=== PATIENT | male | born 1970 | race Caucasian/White ===

== ENCOUNTER 2017-05-25 19:30 | Inpatient (IN) | payer BC ==
--- NOTE | 2017-05-25 21:15 | PDOC ---
History of Present Illness - General History Source: Patient Exam Limitations: No Limitations - History of Present Illness Initial Comments: 05/25/17 21:25 The patient is a 46 year old male with history of cigarette smoking, recent left wisdom tooth removal on 05/23/17, ?sleep apnea, who presents to the ED complaining of approximately 1 week of fever, Tmax 102, and sore throat. He states he was seen at Urgent Care approximately 6 days ago for his symptoms, where he had negative strep and mono tests. He returned to the Urgent Care 4 days ago for persistence of his symptoms and again had negative strep and mono tests. He saw his dentist 2 days ago who reportedly removed a left lower wisdom tooth and underlying cyst. He was prescribed 150 mg of Clindamycin TID and completed 2 days of a 7 day course. Yesterday, he was woken from sleep by difficulty breathing. He continues to have fever and sore throat. No chest pain or wheezing. He does report loose stools secondary to taking Clindamycin. No abdominal pain, nausea, vomiting. No hematuria or dysuria. Patient is allergic Penicillins, cephalexin monohydrate <Kendy Mccray - Last Filed: 05/25/17 23:52> <Ju Martínez - Last Filed: 05/26/17 05:53> - General Chief Complaint: Respiratory Stated Complaint: SORE THROAT Time Seen by Provider: 05/25/17 20:42 Past History <Kendy Mccray - Last Filed: 05/25/17 23:52> - Psycho/Social/Smoking Cessation Hx Suicidal Ideation: No Smoking History: Current every day smoker Have you smoked in the past 12 months: No Number of Cigarettes Smoked Daily: 10 Information on smoking cessation initiated: No Hx Alcohol Use: No Drug/Substance Use Hx: No <Ju Martínez - Last Filed: 05/26/17 05:53> - Past Medical History Allergies/Adverse Reactions: Allergies Allergy/AdvReac Type Severity Reaction Status Date / Time cephalexin monohydrate Allergy Verified 05/25/17 19:49 [From Keflex] Penicillins Allergy Verified 05/25/17 19:49 Home Medications: Ambulatory Orders Clindamycin [Cleocin -] 150 mg PO Q6H 05/25/17 Ibuprofen [Motrin -] 600 mg PO TID PRN 05/25/17 Naproxen [Naprosyn -] 500 mg PO BID PRN 05/25/17 Review of Systems - Review of Systems Able to Perform ROS?: Yes Comments:: 05/25/17 21:31 GENERAL/CONSTITUTIONAL: +Fever. No weakness. HEAD, EYES, EARS, NOSE AND THROAT: +Sore throat. +Left ear pain. No change in vision. No ear discharge. CARDIOVASCULAR: No chest pain or shortness of breath. RESPIRATORY: No cough, wheezing, or hemoptysis. GASTROINTESTINAL: +Loose stools, No nausea, vomiting, abdominal pain, or constipation. GENITOURINARY: No dysuria, frequency, or change in urination. MUSCULOSKELETAL: No joint or muscle swelling or pain. No neck or back pain. SKIN: No rash NEUROLOGIC: No headache, vertigo, loss of consciousness, or change in strength/ sensation. ENDOCRINE: No increased thirst. No abnormal weight change. HEMATOLOGIC/LYMPHATIC: No anemia, easy bleeding, or history of blood clots. ALLERGIC/IMMUNOLOGIC: No hives or skin allergy. <Kendy Mccray - Last Filed: 05/25/17 23:52> *Physical Exam - Vital Signs Last Vital Signs Temp Pulse Resp BP Pulse Ox 99.6 F 94 H 18 131/80 96 05/25/17 19:43 05/25/17 19:43 05/25/17 19:43 05/25/17 19:43 05/25/17 19:43 - Physical Exam Comments: 05/25/17 21:31 GENERAL: Awake, alert, and fully oriented, in no acute distress HEAD: No signs of trauma EYES: PERRLA, EOMI, sclera anicteric, conjunctiva clear ENT: Auricles normal inspection, hearing grossly normal, nares patent. +Left mandibular suture in place. +Left peritonsillar edema and "beefiness". Moist mucosa. TMs bilaterally with copious cerumen, no notable erythema. NECK: Normal ROM, supple, no lymphadenopathy, JVD, or masses LUNGS: Breath sounds equal, clear to auscultation bilaterally. No wheezes, and no crackles HEART: Regular rate and rhythm, normal S1 and S2, no murmurs, rubs or gallops ABDOMEN: Soft, nontender, normoactive bowel sounds. No guarding, no rebound. No masses EXTREMITIES: Normal range of motion, no edema. No clubbing or cyanosis. No cords, erythema, or tenderness NEUROLOGICAL: Cranial nerves II through XII grossly intact. Normal speech, normal gait SKIN: Warm, Dry, normal turgor, no rashes or lesions noted. <Kendy Mccray - Last Filed: 05/25/17 23:52> - Vital Signs Last Vital Signs Temp Pulse Resp BP Pulse Ox 99.6 F 94 H 18 131/80 96 05/25/17 19:43 05/25/17 19:43 05/25/17 19:43 05/25/17 19:43 05/25/17 19:43 <Ju Martínez - Last Filed: 05/26/17 05:53> Heart Score/ECG Review #1 05/25/17 23:52 EKG obtained 23:40. Poor data quality NSR 72 bpm. Normal EKG <Kendy Mccray - Last Filed: 05/25/17 23:52> ED Treatment Course - LABORATORY CBC & Chemistry Diagram: 05/25/17 21:40 05/25/17 21:40 - Additional Consults Time Called: 23:40 Consult/PCP: Placed call to Dr. Go of ENT at [phone] Reason/Comments: Case discussed with covering surgeon Dr. Rosenberg at 23:49 <Kendy Mccray - Last Filed: 05/25/17 23:52> - LABORATORY CBC & Chemistry Diagram: 05/25/17 21:40 05/25/17 21:40 <Ju Martínez - Last Filed: 05/26/17 05:53> Medical Decision Making - Medical Decision Making 05/26/17 00:39 Patient Name: Jose Adams This is a preliminary report by imaging continuous miner operator helper Exam : CT soft tissues of the neck without contrast Images: 347 Clinical indication : Rule out left tonsillar abscess. Findings: The lingual tonsils are enlarged. A rounded area of hypovascularity in the left tonsil measures up to 16 mm in diameter consistent with phlegmon. This process demonstrates central soft tissue attenuation and is unlikely to represent a drainable abscess. Peripheral hypervascularity is noted. The epiglottis and aryepiglottic folds are unremarkable. The larynx is unremarkable. The visualized cerebral and cerebellar parenchyma is unremarkable. Limited evaluation of the orbits and globes unremarkable. The coastal thickening and debris is noted in the left sphenoid sinus. The paranasal sinuses middle ear cavities and mastoids are otherwise aerated and clear. The nasal cavity and oral cavity are unremarkable. The parotid and submandibular glands are unremarkable. No adenopathy noted. Impression: Enlarged lingual tonsils. A hypovascular soft tissue attenuation process seen on the left demonstrates peripheral increased vascularity and is consistent with a phlegmon/forming abscess. This is unlikely to represent a drainable collection. THIS DOCUMENT HAS BEEN ELECTRONICALLY SIGNED 05/26/17 00:55 Pt was given 150mg clinda TID by his dentist as prophylaxis for his removed tooth. This is not strong enough for his throat/mouth infection. I gave him a large dose of 900mg clindamycin, considering the extent of his infection and his weight of 142kg. Pt will be admitted to the hospitalist, as he is unable to breathe when he sleeps, secondary to the swelling in his throat. ENT recommended dexamethasone. She came to see the patient, but she could not remove pus from the throat. perhaps, the abscess pocket is early and not filled with pus. 05/26/17 05:49 Pt admitted to the floor. He will be upgraded to ICU, as per ENT. <Ju Martínez - Last Filed: 05/26/17 05:53> *DC/Admit/Observation/Transfer - Attestations Scribe Attestion: 05/25/17 21:33 Documentation prepared by Kendy Mccray, acting as outside medical sales representative for Ju Martínez MD. <Kendy Mccray - Last Filed: 05/25/17 23:52> - Discharge Dispostion Admit: Yes <Ju Martínez - Last Filed: 05/26/17 05:53> Diagnosis at time of Disposition: Peritonsillar abscess, Difficulty breathing, Throat infection - Discharge Dispostion Condition at time of disposition: Guarded
[2017-05-25] MEDS ORDERED: CLINDAMYCIN 900 MG PREMIX IVPB 50 ML IVPB ONE ×2 (21:25→21:53)
[2017-05-25] MEDS ORDERED: SODIUM CHLORIDE 0.9% 500 ML INFUS.BAG IV ONE (21:26)
[2017-05-25] MEDS ORDERED: ACETAMINOPHEN 1000 MG/100 ML VIAL (NON FORMULARY) IVPB ONE (21:26)
[2017-05-25 21:53] LABS: MCH 30.1 pg (25.7-33.7); MEAN CELL VOLUME 88.5 fl (80-96); MEAN PLT VOLUME 8.1 fl (7.5-11.1); PLATELET COUNT 265 K/MM3 (134-434); RDW 12.8 % (11.9-15.9); WHITE BLOOD COUNT 20.3 K/mm3 (4.0-10.0)
[2017-05-25 22:24] LABS: ALBUMIN 4.1 g/dl (3.4-5.0); ANION GAP 10 (8-16); BILIRUBIN,TOTAL 0.4 mg/dL (0.2-1.0); CALCIUM 8.7 mg/dL (8.5-10.1); CO2 26 mmol/L (21-32); CREATININE 1.1 mg/dL (0.7-1.3); GLUCOSE,RANDOM 96 mg/dL (74-106); SGOT/AST 14 U/L (15-37); SGPT/ALT 39 U/L (12-78); TOT PROT 7.6 g/dl (6.4-8.2)
[2017-05-25 22:32] LABS: ALK PHOS 96 U/L (45-117); THYROID STIMULATING HORMONE 1.64 uIU/ml (0.358-3.74)
[2017-05-25] MEDS ORDERED: DEXAMETHASONE SOD PHOSPHATE 10 MG/1 ML VIAL IVPB ONE (23:51)
[2017-05-25] MEDS ORDERED: DEXAMETHASONE SOD PHOSPHATE 10 MG/1 ML VIAL ONE (23:57)
--- NOTE | 2017-05-26 00:50 | PN ---
Teaching Attending Note Name of Resident: Farzaneh Serrano ATTENDING PHYSICIAN STATEMENT I saw and evaluated the patient. I reviewed the resident's note and discussed the case with the resident. I agree with the resident's findings and plan as documented. SUBJECTIVE: 46 M with pmhx of smoking, with left wisdom tooth removal done on 05/23 and placed on Clindamycin 150, sleep apnea, who presents to the ED with sore throat and fever. OBJECTIVE: Physcal: VS: Vital Signs Period Temp Pulse Resp BP Sys/Martin Pulse Ox Last 24 Hr 99.6 F 94 18 131/80 96 GEN: Able to speak full sentences HEENT: NCAT, PERRL, Left tonsillar edema CARD: RRR S1, S2 RESP: CTAB ABD: BS X4, NTD to palpation EXT: - C/C/E CBCD WBC 20.3 K/mm3 (4.0-10.0) H 05/25/17 21:40 RBC 4.82 M/mm3 (4.00-5.60) 05/25/17 21:40 Hgb 14.5 GM/dL (11.7-16.9) 05/25/17 21:40 Hct 42.7 % (35.4-49) 05/25/17 21:40 MCV 88.5 fl (80-96) 05/25/17 21:40 MCHC 34.0 g/dl (32.0-35.9) 05/25/17 21:40 RDW 12.8 % (11.9-15.9) 05/25/17 21:40 Plt Count 265 K/MM3 (134-434) 05/25/17 21:40 MPV 8.1 fl (7.5-11.1) 05/25/17 21:40 CMP Sodium 140 mmol/L (136-145) 05/25/17 21:40 Potassium 4.2 mmol/L (3.5-5.1) 05/25/17 21:40 Chloride 104 mmol/L (98-107) 05/25/17 21:40 Carbon Dioxide 26 mmol/L (21-32) 05/25/17 21:40 Anion Gap 10 (8-16) 05/25/17 21:40 BUN 15 mg/dL (7-18) 05/25/17 21:40 Creatinine 1.1 mg/dL (0.7-1.3) 05/25/17 21:40 Creat Clearance w eGFR > 60 (>60) 05/25/17 21:40 Random Glucose 96 mg/dL (74-106) 05/25/17 21:40 Calcium 8.7 mg/dL (8.5-10.1) 05/25/17 21:40 Total Bilirubin 0.4 mg/dL (0.2-1.0) 05/25/17 21:40 AST 14 U/L (15-37) L 05/25/17 21:40 ALT 39 U/L (12-78) 05/25/17 21:40 Alkaline Phosphatase 96 U/L (45-117) 05/25/17 21:40 Total Protein 7.6 g/dl (6.4-8.2) 05/25/17 21:40 Albumin 4.1 g/dl (3.4-5.0) 05/25/17 21:40 CT Soft Tissue Neck: Enlarged Lingual tonsils, hypovascular soft tissue attenuation with increased vascularity c/w Phlegmon/forming abscess, unlikley to present drainable collection. ASSESSMENT AND PLAN: 46 M with pmhx of smoking presents with sore throat and fever found to be septic secondary to margot-tonsillar abscess 1.) Sepsis - Secondary to Margot-Tonsilar abscess - [place] Cx - LA, and repeat - Clindamycin 600 q 8 - S/P Dexamethasone 10 IV, then 8 q 8 - ENT on consult - IVF - ID consult if no improvement 2.) Smoking - Advise Cessation 3.) Dvt Ppx - Low Risk- Ambulate Rest as per resident note CC Time: 40 minutes, accepted to ICU by compliance mgr
[2017-05-26] MEDS ORDERED: LIDOCAINE 1%/EPI 1:100000 (50 ML MULTI DOSE VIAL) ONE (01:12)
--- NOTE | 2017-05-26 01:24 | HP ---
CHIEF COMPLAINT: Difficulty breathing and unable to swallow PCP: Not on staff HISTORY OF PRESENT ILLNESS: Patient is a46 year old male with a PMHx of recent left wisdom tooth removal () who presented to the ED complaining of fevers, sore throat, difficulty breathing and swallowing. Patient states going to urgent care last week for these symptoms with results showing negative strep and mono. Patient then had a his wisdom tooth and underlying curst removed two days ago and was given Clindamycin 150mg PO TID, which he completed two days of. Patient then suddenly work up from his sleep today with difficulty breathing and drooling. Patient otherwise denies nausea, vomiting, abdominal pain, chest pain, palpitations, dysuria, hematuria, headaches, dizziness, Vital Signs - 24 hr 05/25/17 05/26/17 19:43 03:03 Temperature 99.6 F 98.2 F Pulse Rate 94 H Pulse Rate [ 85 Right Apical] Respiratory 18 19 Rate Blood Pressure 131/80 Blood Pressure 116/84 [Left Arm] O2 Sat by Pulse 96 98 Oximetry (%) PHYSICAL EXAMINATION GENERAL: Awake, alert, and fully oriented. Able to speak in full sentences without difficulty or drooling with muffled voice EYES: Sclera anicteric, conjunctiva clear. EARS, NOSE, THROAT: Moist mucous membranes. Induration, edema, and hypertrophy of left tonsil. Midline uvula NECK: Normal range of motion, supple without lymphadenopathy, JVD, or masses. LUNGS: Breath sounds equal, clear to auscultation bilaterally. No wheezes, and no crackles. No accessory muscle use. HEART: Regular rate and rhythm, normal S1 and S2 without murmur, rub or gallop. ABDOMEN: Soft, nontender, not distended, normoactive bowel sounds, no guarding, no rebound, no masses. LOWER EXTREMITIES: No peripheral edema. NEUROLOGICAL: Normal speech, No facial droop IMAGES: Soft Tissue CT of the neck (05/25/17): The lingual tonsils are enlarged. A rounded area of hypovascularity in the left tonsil measures up to 16 mm in diameter consistent with phlegmon. This process demonstrates central soft tissue attenuation and is unlikely to represent a drainable abscess. Peripheral hypervascularity is noted. The epiglottis and aryepiglottic folds are unremarkable. The larynx is unremarkable. The visualized cerebral and cerebellar parenchyma is unremarkable. Limited evaluation of the orbits and globes unremarkable. The coastal thickening and debris is noted in the left sphenoid sinus. The paranasal sinuses middle ear cavities and mastoids are otherwise aerated and clear. The nasal cavity and oral cavity are unremarkable. The parotid and submandibular glands are unremarkable. No adenopathy noted. Impression: Enlarged lingual tonsils. A hypovascular soft tissue attenuation process seen on the left demonstrates peripheral increased vascularity and is consistent with a phlegmon/forming abscess. This is unlikely to represent a drainable collection. ASSESSMENT/PLAN: Patient is a 46 year old male with a PMHx of Nicotine dependence who presented for difficulty breathing and swallowing that started last week and progressively worsened in the last two days. Patient was found to have peritonsillar abscess and admitted for further monitoring and management. Sepsis Secondary to Peritonsillar Abscess -CT revealed phlegmon/forming abscess -Initially presented with Tachycardia and Leukocytosis -Lactic Acid pending -Clindamycin 900mg IV given in ED. Will continue with CLindamycin 600mg IV Q8H as patient is allergic to penicillins -Decadron 10mg IV given in ED. Will give 8mg Q8H IV -Morphine 1mg Q4H PRN for pain control -Blood cultures sent -Rapid stress ordered -ENT Consult placed -IV NS @125mls/hr -NPO -Dysphagia Precaution -ICU monitoring Nicotine Dependence -Nicotine Patch 14mg TD daily F/E/N -IV NS @125mls/hr -Electrolytes wnl -NPO Prophylaxis -Low Risk. EAM. SCD's for DVT -No GI prophylaxis indicated Disposition -Full code -Will admit to ICU for monitoring Visit type - Emergency Visit Emergency Visit: Yes ED Registration Date: 05/26/17 Care time: The patient presented to the Emergency Department on the above date and was hospitalized for further evaluation of their emergent condition. - New Patient This patient is new to me today: Yes Date on this admission: 05/26/17 - Critical Care Critical Care patient: Yes Total Critical Care Time (in minutes): 45 Critical Care Statement: The care of this patient involved high complexity decision making to prevent further life threatening deterioration of the patient 's condition and/or to evalute & treat vital organ system(s) failure or risk of failure.
--- NOTE | 2017-05-26 02:13 | CONSULT ---
Consult - text type - Consultation Consultation Note: CC: sore throat x 7 days HPI: 46 year old male with history of cigarette smoking, recent left wisdom tooth removal on 05/23/17, possible sleep apnea, who presents to the ED complaining of approximately 1 week of fever and sore throat. He states he was seen at Urgent Care approximately 6 days ago for his symptoms, where he had negative strep and mono tests. He returned to the Urgent Care 4 days ago for persistence of his symptoms and again had negative strep and mono tests. He saw his dentist 2 days ago who reportedly removed a left lower wisdom tooth and underlying cyst. He was prescribed 150 mg of Clindamycin TID and completed 2 days of a 7 day course. He reports that yesterday, he was woken from sleep by difficulty breathing. He continues to have fever and sore throat. No chest pain or wheezing. He does report loose stools which he attributes to taking Clindamycin. No abdominal pain, nausea, vomiting. No hematuria or dysuria. Patient is allergic Penicillins, cephalexin monohydrate Smoking History: Current every day smoker Have you smoked in the past 12 months: No Number of Cigarettes Smoked Daily: 10 Information on smoking cessation initiated: No Hx Alcohol Use: No - Past Medical History Allergies/Adverse Reactions: Allergies Allergy/AdvReac Type Severity Reaction Status Date / Time cephalexin monohydrate Allergy Verified 05/25/17 19:49 [From Keflex] Penicillins Allergy Verified 05/25/17 19:49 Home Medications: Ambulatory Orders Clindamycin [Cleocin -] 150 mg PO Q8H? 05/25/17 Ibuprofen [Motrin -] 600 mg PO TID PRN 05/25/17 Naproxen [Naprosyn -] 500 mg PO BID PRN 05/25/17 Review of Systems - Review of Systems Able to Perform ROS?: Yes Comments:: 05/25/17 21:31 GENERAL/CONSTITUTIONAL: +Fever. No weakness. HEAD, EYES, EARS, NOSE AND THROAT: +Sore throat. +Left ear pain. No change in vision. No ear discharge. CARDIOVASCULAR: No chest pain or shortness of breath. RESPIRATORY: No cough, wheezing, or hemoptysis. GASTROINTESTINAL: +Loose stools, No nausea, vomiting, abdominal pain, or constipation. GENITOURINARY: No dysuria, frequency, or change in urination. MUSCULOSKELETAL: No joint or muscle swelling or pain. No neck or back pain. SKIN: No rash NEUROLOGIC: No headache, vertigo, loss of consciousness, or change in strength/ sensation. ENDOCRINE: No increased thirst. No abnormal weight change. HEMATOLOGIC/LYMPHATIC: No anemia, easy bleeding, or history of blood clots. ALLERGIC/IMMUNOLOGIC: No hives or skin allergy. *Physical Exam - Vital Signs Last Vital Signs Temp Pulse Resp BP Pulse Ox 99.6 F 94 H 18 131/80 96 05/25/17 19:43 05/25/17 19:43 05/25/17 19:43 05/25/17 19:43 05/25/17 19:43 - Physical Exam Comments: 05/25/17 21:31 GENERAL: Awake, alert, and fully oriented, in no acute distress, No drooling. voice- very slight hot potato voice HEAD: No signs of trauma EYES: PERRLA, EOMI, sclera anicteric, conjunctiva clear EARS: Auricles normal inspection, hearing grossly normal, NC: DNS NML mucosa OC/OP Left gingiva- sutures from extraction of left molar in place, no erythema or induration. Left teft soft palate inuration and left tonsillar hypertrophy with medialized tonsil but uvula is basically midline. NECK: Normal ROM, supple, no lymphadenopathy, JVD, or masses LUNGS:normal effort EXTREMITIES: Normal range of motion, no edema. NEUROLOGICAL: Cranial nerves II through XII grossly intact. SKIN: Warm, Dry, normal turgor, no rashes or lesions noted. DFL NC: DNS , nml mucosa + polyps in left NC. no mucopus in OMC or ser . NPx wnl. OPX: tonsillar hypertrophy and soft palate induration. Hypophaynx and larynx very slight left lateral hypophayngeal wall bulge superiorly. epiglottis wnl, arytneoids wnl.piriforma sinuses wnl. post cricoid wnl. VFs mobile bilaterally. no pooling of secretions. <Kendy Mccray - Last Filed: 05/25/17 23:52> - Vital Signs Last Vital Signs Temp Pulse Resp BP Pulse Ox 99.6 F 94 H 18 131/80 96 05/25/17 19:43 05/25/17 19:43 05/25/17 19:43 05/25/17 19:43 05/25/17 19:43 -05/25/17 21:40 05/25/17 21:40 This is a preliminary report by imaging complaint evaluation officer Exam: CT soft tissues of the neck without contrast Images: 347 Clinical indication: Rule out left tonsillar abscess. Findings: The lingual tonsils are enlarged. A rounded area of hypovascularity in the left tonsil measures up to 16 mm in diameter consistent with phlegmon. This process demonstrates central soft tissue attenuation and is unlikely to represent a drainable abscess. Peripheral hypervascularity is noted. The epiglottis and aryepiglottic folds are unremarkable. The larynx is unremarkable. The visualized cerebral and cerebellar parenchyma is unremarkable. Limited evaluation of the orbits and globes unremarkable. The coastal thickening and debris is noted in the left sphenoid sinus. The paranasal sinuses middle ear cavities and mastoids are otherwise aerated and clear. The nasal cavity and oral cavity are unremarkable. The parotid and submandibular glands are unremarkable. No adenopathy noted. Impression: Enlarged lingual tonsils. A hypovascular soft tissue attenuation process seen on the left demonstrates peripheral increased vascularity and is consistent with a phlegmon/forming abscess. This is unlikely to represent a drainable collection. THIS DOCUMENT HAS BEEN ELECTRONICALLY SIGNED informed consent for I and D of possible left DEAF INTERPRETER obtained after r,b,a discussed and questions answered . Left soft palate injected with lidocaine with epi 1:100,000 (approx 0.5 cc) after POP sprayed with hurriciane spray. # passes of needle (20 guage) aspirations were done. no pus obtained. A/P: tonsillitis, left peritonsillar/ paraphayngeal phlegmon orophayrngeal airway with patent but narrowed. Hypophayngela and laryngeal airway widely patent. Admit to ICU/monitored setting. Cont IV clinda and decadron. Discussed with ER and medical Staff. Consider ID consult as patient is PCN allergic and has been on clinda albeit likely sub-therapeutic dose. .
[2017-05-26] MEDS ORDERED: morphine CARPU-JECT 2 MG/1 ML DISP.SYRIN IVPUSH PRN ×3 (02:22→11:58)
[2017-05-26] MEDS ORDERED: SODIUM CHLORIDE 1,000 ML IV SCH ×3 (02:30→11:58)
--- NOTE | 2017-05-26 02:41 | HP ---
CHIEF COMPLAINT: Difficulty breathing and difficulty swallowing. PCP:No PCP HISTORY OF PRESENT ILLNESS:05/25/17 21:25 A 46 year old white male with history of cigarette smoking, recent left wisdom tooth removal on 05/23/17, who presents to the ED complaining of approximately 1 week of fever, Tmax 102, and sore throat. He states he was seen at Urgent Care approximately 6 days ago for his symptoms, where he had negative strep and negative mono tests. He returned to the Urgent Care 4 days ago for persistence of his symptoms and again had negative strep and mono tests. He saw his dentist 2 days ago who reportedly removed a left lower wisdom tooth and underlying cyst. He was prescribed 150 mg of Clindamycin TID and completed 2 days of a 7 day course. Yesterday, he was woken from sleep by difficulty breathing and gasping for air. He continues to have fever and sore throat and difficulty swallowing. No chest pain or wheezing. He does report soft loose stools secondary to taking Clindamycin. No abdominal pain, nausea, vomiting. No hematuria or dysuria. He reports a left air pain that relieved with tooth extraction. He denies any headache, blurry vision, facial pain.no history of sick contact, recent cold or recent travel. Patient is allergic Penicillins, cephalexin monohydrate ER course was notable for: (1)Ct scan was ordered which revealed Impression: Enlarged lingual tonsils. A hypovascular soft tissue attenuation process seen on the left demonstrates peripheral increased vascularity and is consistent with a phlegmon/forming abscess. (2) ENT Dr Coy was consulted, she tried to drain the abscess with no success. (3) Clindamycine 900 IV Recent Travel:NO PAST MEDICAL HISTORY:Unremarkable PAST SURGICAL HISTORY: Laser eye lasik surgery 10 years ago. Social History: Smokin/2 pack/day for the last 20 years. Alcohol:Socially Drugs: No Family History:unremarkable. Allergies cephalexin monohydrate [From [facility]] Allergy (Verified 05/25/17 19:49) Penicillins Allergy (Verified 05/25/17 19:49) HOME MEDICATIONS: Home Medications Medication Instructions Recorded Clindamycin [Cleocin -] 150 mg PO Q6H 05/25/17 Ibuprofen [Motrin -] 600 mg PO TID PRN 05/25/17 Naproxen [Naprosyn -] 500 mg PO BID PRN 05/25/17 REVIEW OF SYSTEMS CONSTITUTIONAL: fever but ,no diaphoresis,no generalized weakness, malaise, loss of appetite, weight change HEENT: He Denies rhinorrhea, nasal congestion, +throat pain,+ throat swelling, + difficulty swallowing, no mouth swelling, +ear pain, No eye pain, No visual changes CARDIOVASCULAR: He denies any chest pain, syncope, palpitations, irregular heart rate, lightheadedness or peripheral edema RESPIRATORY: Absent: denies cough, +shortness of breath,No dyspnea with exertion, No orthopnea, wheezing, stridor, hemoptysis GASTROINTESTINAL: Absent:No abdominal pain, abdominal distension, nausea, vomiting, diarrhea, constipation, melena, hematochezia GENITOURINARY: Absent:No dysuria, frequency, urgency, hesitancy, hematuria, flank pain, or genital pain MUSCULOSKELETAL: Absent: no myalgia, arthralgia, joint swelling, back pain, neck pain SKIN: Absent: No rash, itching, pallor HEMATOLOGIC/IMMUNOLOGIC: Absent: denies easy bleeding, easy bruising,+ submandibular lymphadenopathy,no recent infections ENDOCRINE: Absent: denies any weight changes, heat intolerance, cold intolerance NEUROLOGIC: Absent:denies headache, focal weakness or paresthesias, dizziness, unsteady gait, seizure, mental status changes, bladder or bowel incontinence PSYCHIATRIC: Absent: No anxiety, depression, suicidal or homicidal ideation, hallucinations. Vital Signs - 24 hr 05/25/17 19:43 Temperature 99.6 F Pulse Rate 94 H Respiratory 18 Rate Blood Pressure 131/80 O2 Sat by Pulse 96 Oximetry (%) PHYSICAL EXAMINATION GENERAL: Awake, alert, and fully oriented, in no acute distress. HEAD: Normal with no signs of trauma.peritonsillar enlargement with difficulty swallowing. EYES: Pupils equal, round and reactive to light, extraocular movements intact, sclera anicteric, conjunctiva clear. No lid lag. EARS, NOSE, THROAT: Ears normal, nares patent, oropharynx erythema with tonsils enlargement. Moist mucous membranes. NECK: Normal range of motion, supple with submandibular lymphadenopathy, No JVD ,+ peritonsillar abscess. LUNGS: Breath sounds equal, clear to auscultation bilaterally. No wheezes, and no crackles. No accessory muscle use. HEART: Regular rate and rhythm, normal S1 and S2 without murmur, rub or gallop. ABDOMEN: Soft, nontender, not distended, normoactive bowel sounds, no guarding, no rebound, no masses. No hepatomegaly or splenomegaly. MUSCULOSKELETAL: Normal range of motion at all joints. No bony deformities or tenderness. No CVA tenderness. UPPER EXTREMITIES: 2+ pulses, warm, well-perfused. No cyanosis. No clubbing. No peripheral edema. LOWER EXTREMITIES: 2+ pulses, warm, well-perfused. No calf tenderness. No peripheral edema. NEUROLOGICAL: Cranial nerves II-XII intact. Normal speech. Normal gait. PSYCHIATRIC: Cooperative. Good eye contact. Appropriate mood and affect. SKIN: Warm, dry, normal turgor, no rashes or lesions noted, normal capillary refill. Laboratory Results - last 24 hr 05/25/17 05/25/17 21:40 21:40 WBC 20.3 H RBC 4.82 Hgb 14.5 Hct 42.7 MCV 88.5 MCHC 34.0 RDW 12.8 Plt Count 265 MPV 8.1 Neutrophils % 75.0 Lymphocytes % 17.0 Monocytes % 6.0 Eosinophils % 1.0 Band Neutrophils 1.0 Sodium 140 Potassium 4.2 Chloride 104 Carbon Dioxide 26 Anion Gap 10 BUN 15 Creatinine 1.1 Creat Clearance w eGFR > 60 Random Glucose 96 Calcium 8.7 Total Bilirubin 0.4 AST 14 L ALT 39 Alkaline Phosphatase 96 Total Protein 7.6 Albumin 4[address] Soft tissue of the neck without contrast revealed Enlarged lingual tonsils. A hypovascular soft tissue attenuation process seen on the left demonstrates peripheral increased vascularity and is consistent with a phlegmon/forming abscess. This is unlikely to represent a drainable collection. ASSESSMENT/PLAN: a 46 year old white male with history of cigarette smoking, recent left wisdom tooth removal on 05/23/17, and sleep apnea, who presents to the ED complaining of approximately 1 week of fever, Tmax 102, and sore throat. 1- Sepsis 2/2 peritonsillar abscess: * CT scan for the neck w/O contrast revealed Enlarged lingual tonsils. A hypovascular soft tissue attenuation process seen on the left demonstrates peripheral increased vascularity and is consistent with a phlegmon/forming abscess. This is unlikely to represent a drainable collection. * CBC and BMP were ordered which showed WBC 20.3, H/H 14.5/42.7, Plt 265. Na 140, K 4.2, Cl 104, Bec 26, BUN 15/ Cr 1.1, Glu 96. * Antibiotics: Clindamycin 900 mg IV was given in the ER. * Will continue Clindamycin 600 mg IV Q8H * Steroids: Decadrone 10 mg was given in the ED and will continue tapering with 8 mg Q8H. * Lactic acid was ordered will follow up the result. * IV NS 125 mm/hour * will admit the patient in the ICU for monitoring. * NPO due to sore throat and dysphasia. * Pain control: Morphine 1 mg Q 4 h PRN. * rapid strep test and culture. * Dysphasia aspiration precautions. * F/U blood culture 2- Possible sleep apnea(undiagnosed): continue monitoring O2 sat and will admit to the ICU for monitoring.Pt was supposed to do the sleep study. 3- Prophylaxis: * SCD's for for DVT prophylaxis. * disposition:Full code - Will admit to ICU for monitoring daily activity as tolerated. * Fluids: NS 125 m/H * Electrolytes WNL * Nutrition : NPO * Dysphasia precautions 4- Nicotine addicted: * Nicotine Patch 14 daily was ordered. * smoking cessation consult and education. Visit type - Emergency Visit Emergency Visit: Yes ED Registration Date: 05/26/17 Care time: The patient presented to the Emergency Department on the above date and was hospitalized for further evaluation of their emergent condition. - New Patient This patient is new to me today: Yes Date on this admission: 05/26/17 - Critical Care Critical Care patient: Yes Total Critical Care Time (in minutes): 35 Critical Care Statement: The care of this patient involved high complexity decision making to prevent further life threatening deterioration of the patient 's condition and/or to evalute & treat vital organ system(s) failure or risk of failure.
[2017-05-26] MEDS ORDERED: CLINDAMYCIN 600MG PREMIX IVPB 50 ML IVPB SCH ×2 (03:00→09:00)
--- NOTE | 2017-05-26 04:43 | CONSULT ---
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 He states he was seen at Urgent Care on friday ~6d ago. Strep and mono tests were negative. He returned to the Urgent Care 4 days ago for persistence of his symptoms and again had negative strep and mono tests. He also visited an ENT doctor and was told to see his dentist where he had an extraction of infected left molar with cyst drainage. He was prescribed 150 mg of Clindamycin TID. He developed SOB and difficulty breathing and presented to ED. In ED HD stable. He reported sore throat and difficulty swallowing and soft loose stools secondary to taking Clindamycin. He denied chest pain; abdominal pain, n/v, headache, blurry vision, facial pain. Labs notable for WBC 20. He was started on Clindamycin 900mg TID. He was seen by ENT who had unsuccessful attempts at draining pocket. He was transferred to ICU for airway monitoring. In ICU rec'd afebrile on room air O2 sat 99%,HR 98, BP 122/80. Has obvious sleep apnea with HR down to 51 and O2 sat low 80's with snoring. Placed on NC O2. Antibiotics continued - History Source History Provided By: Patient, Medical Record Limitations to Obtaining History: No Limitations - Past Medical History Pulmonary: Yes: Sleep Apnea - Alcohol/Substance Use Hx Alcohol Use: No - Smoking History Smoking history: Current every day smoker Have you smoked in the past 12 months: No Aproximately how many cigarettes per day: 10 Home Medications - Allergies Allergies/Adverse Reactions: Allergies Allergy/AdvReac Type Severity Reaction Status Date / Time cephalexin monohydrate Allergy Verified 05/25/17 19:49 [From Keflex] Penicillins Allergy Verified 05/25/17 19:49 - Home Medications Home Medications: Ambulatory Orders Clindamycin [Cleocin -] 150 mg PO Q6H 05/25/17 Ibuprofen [Motrin -] 600 mg PO TID PRN 05/25/17 Naproxen [Naprosyn -] 500 mg PO BID PRN 05/25/17 Family Disease History - Family Disease History Family History: Unremarkable Review of Systems - Review of Systems Constitutional: reports: Chills, Fever, Loss of Appetite Eyes: reports: No Symptoms HENT: reports: Difficult Swallowing, Other (throat swelling) Neck: reports: Tenderness Cardiovascular: reports: No Symptoms Respiratory: reports: SOB Gastrointestinal: reports: Diarrhea Genitourinary: reports: No Symptoms Endocrine: reports: No Symptoms Hematology/Lymphatic: reports: No Symptoms Psychiatric: reports: No Symptoms Physical Exam Vital Signs: Vital Signs Temperature 98.5 F 05/26/17 03:48 Pulse Rate 72 05/26/17 03:48 Respiratory Rate 18 05/26/17 03:48 Blood Pressure 121/72 05/26/17 03:48 O2 Sat by Pulse Oximetry (%) 98 05/26/17 03:03 Constitutional: Yes: Obese Eyes: Yes: WNL, Conjunctiva Clear HENT: Yes: Nasal Congestion, Other (dysphagia, no drool) Neck: Yes: Trachea Midline, Lymphadenopathy, Tenderness (Lt Submandibular swelling), Other Cardiovascular: Yes: Bradycardia Respiratory: Yes: CTA Bilaterally, On Nasal O2, Other (nasal congestion) Gastrointestinal: Yes: Normal Bowel Sounds, Soft, Abdomen, Obese Extremities: Yes: WNL Edema: No Peripheral Pulses WNL: Yes Integumentary: Yes: WNL Neurological: Yes: WNL ...Motor Strength: WNL Psychiatric: Yes: Alert, Oriented Labs: CBC,CMP WBC 20.3 K/mm3 (4.0-10.0) H 05/25/17 21:40 RBC 4.82 M/mm3 (4.00-5.60) 05/25/17 21:40 Hgb 14.5 GM/dL (11.7-16.9) 05/25/17 21:40 Hct 42.7 % (35.4-49) 05/25/17 21:40 MCV 88.5 fl (80-96) 05/25/17 21:40 MCHC 34.0 g/dl (32.0-35.9) 05/25/17 21:40 RDW 12.8 % (11.9-15.9) 05/25/17 21:40 Plt Count 265 K/MM3 (134-434) 05/25/17 21:40 MPV 8.1 fl (7.5-11.1) 05/25/17 21:40 Neutrophils % 75.0 % (42.8-82.8) 05/25/17 21:40 Lymphocytes % 17.0 % (8-40) 05/25/17 21:40 Monocytes % 6.0 % (3.8-10.2) 05/25/17 21:40 Eosinophils % 1.0 % (0-4.5) 05/25/17 21:40 Band Neutrophils 1.0 % (0-10) 05/25/17 21:40 Sodium 140 mmol/L (136-145) 05/25/17 21:40 Potassium 4.2 mmol/L (3.5-5.1) 05/25/17 21:40 Chloride 104 mmol/L (98-107) 05/25/17 21:40 Carbon Dioxide 26 mmol/L (21-32) 05/25/17 21:40 Anion Gap 10 (8-16) 05/25/17 21:40 BUN 15 mg/dL (7-18) 05/25/17 21:40 Creatinine 1.1 mg/dL (0.7-1.3) 05/25/17 21:40 Creat Clearance w eGFR > 60 (>60) 05/25/17 21:40 Random Glucose 96 mg/dL (74-106) 05/25/17 21:40 Lactic Acid 0.9 mmol/L (0.4-2.0) 05/26/17 03:35 Calcium 8.7 mg/dL (8.5-10.1) 05/25/17 21:40 Total Bilirubin 0.4 mg/dL (0.2-1.0) 05/25/17 21:40 AST 14 U/L (15-37) L 05/25/17 21:40 ALT 39 U/L (12-78) 05/25/17 21:40 Alkaline Phosphatase 96 U/L (45-117) 05/25/17 21:40 Total Protein 7.6 g/dl (6.4-8.2) 05/25/17 21:40 Albumin 4.1 g/dl (3.4-5.0) 05/25/17 21:40 TSH 1.64 uIU/ml (0.358-3.74) 05/25/17 21:40 Imaging - Results Chest X-ray: Report Reviewed (Clear in all moreno) Cat Scan: Report Reviewed (CT of soft tissues of neck-Enlarged lingual tonsils; 16mm hypovascular area in Lt tonsil consistent with phlegmon/forming abscess, unlikely to represent a drainable collection thickening and debri in lt phenoid sinus.) Problem List - Problems (1) Difficulty breathing Code(s): R06.89 - OTHER ABNORMALITIES OF BREATHING (2) Peritonsillar abscess Code(s): J36 - PERITONSILLAR ABSCESS (3) Throat infection Code(s): J02.9 - ACUTE PHARYNGITIS, UNSPECIFIED Assessment/Plan 46yom smoker who presents to the ED complaining of approximately 1 week of fever , Tmax 102, and sore throat. Is s/p left molar extraction and is found to have enlarged lingual tonsils and a Lt neck plegmon/forming abscess. Transferred to ICU for airway management. Plan: Pulmonary-SOB, risk for airway obstruction; Sleep apnea -ENT following -Continue antibiotics and decadron -NC O2 support for o2 sat>90% -cont oral rinses -Outpatient sleep apne workup
[2017-05-26 05:48] VITALS: BMI 41.3
[2017-05-26 06:08] LABS: MCH 30.7 pg (25.7-33.7); MCHC 34.3 g/dl (32.0-35.9); MEAN CELL VOLUME 89.5 fl (80-96); MEAN PLT VOLUME 8.4 fl (7.5-11.1); PLATELET COUNT 265 K/MM3 (134-434); RDW 13.1 % (11.9-15.9); WHITE BLOOD COUNT 19.1 K/mm3 (4.0-10.0)
[2017-05-26 06:35] LABS: ANION GAP 10 (8-16); CALCIUM 8.7 mg/dL (8.5-10.1); CO2 25 mmol/L (21-32); GLUCOSE,RANDOM 145 mg/dL (74-106); MAGNESIUM 2.4 mg/dL (1.8-2.4); PHOSPHOROUS 3.9 mg/dL (2.5-4.9)
[2017-05-26] MEDS ORDERED: MUPIROCIN 2% TOPICAL OINTMENT FOR DECOLONIZATION NS SCH ×4 (10:00→22:00)
[2017-05-26] MEDS ORDERED: DEXAMETHASONE SOD PHOSPHATE 4 MG/1 ML VIAL IVPUSH SCH ×2 (10:00)
[2017-05-26] MEDS ORDERED: NICOTINE 14 MG/24 HOURS TOPICAL PATCH TD SCH (10:00)
--- NOTE | 2017-05-26 10:36 | EKG ---
Test Reason : Blood Pressure : / mmHG Vent. Rate : 072 BPM Atrial Rate : 072 BPM P-R Int : 154 ms QRS Dur : 086 ms QT Int : 388 ms P-R-T Axes : 016 019 016 degrees QTc Int : 424 ms NORMAL SINUS RHYTHM INCOMPLETE RIGHT BUNDLE BRANCH BLOCK NO PREVIOUS ECGS AVAILABLE Confirmed by KITA ERVIN MD ([id number]) on 05/26/2017 10:35:51 AM Referred By: Confirmed By:KITA ERVIN MD
--- NOTE | 2017-05-26 11:36 | PN ---
Physical Exam: SUBJECTIVE: Pt has been doing well on clindamycin 600 IV and dexamethasone 8mg IV. Patient reports marked improvement in his symptoms, with no difficulty breathing. Soft tissue neck CT on 05/25 showed enlarged tonsils with a hypodensity noted in the left peritonsillar area suggestive of possible abscess. ENT attempted to drain abscess last night without any fluids collected. Denies chest pain, wheezing, nausea, vomiting. States he has been having loose stools, and attributes them to his antibiotics. Allergy: Penicillin OBJECTIVE: Vital Signs Period Temp Pulse Resp BP Sys/Martin Pulse Ox Last 24 Hr 97.7 F-98.5 F 72-85 16-19 105-122/68-84 98-98 GENERAL: The patient is awake, alert, and fully oriented, in no acute distress. HEAD: Normal with no signs of trauma. EYES: PERRL, extraocular movements intact, sclera anicteric, conjunctiva clear. No ptosis. ENT: Ears normal, nares patent, small, erythematous lesion noted in the posterior pharynx suggestive of abscess NECK: Trachea midline, full range of motion, supple. LUNGS: Breath sounds equal, clear to auscultation bilaterally, no wheezes, no crackles, no accessory muscle use. HEART: Regular rate and rhythm, S1, S2 without murmur, rub or gallop. ABDOMEN: Soft, nontender, nondistended, normoactive bowel sounds, no guarding, no rebound, no hepatosplenomegaly, no masses. EXTREMITIES: 2+ pulses, warm, well-perfused, no edema. NEUROLOGICAL: Cranial nerves II through XII grossly intact. Normal speech, gait not observed. PSYCH: Normal mood, normal affect. SKIN: Warm, dry, normal turgor, no rashes or lesions noted CBC, BMP 05/26/17 05:05 05/26/17 05:05 Active Medications Generic Name Dose Route Start Last Admin Trade Name Freq PRN Reason Stop Dose Admin Chlorhexidine Gluconate 1 applic 05/26/17 22:00 Hibiclens For Decolonization - TP HS ESPERANZA Dexamethasone Sodium Phosphate 8 mg 05/26/17 10:00 05/26/17 09:16 Decadron Injection - IVPUSH 8 mg Q8H-IV ESPERANZA Administration Clindamycin Phosphate 50 mls @ 100 mls/hr 05/26/17 09:00 05/26/17 09:16 Cleocin 600 Mg Premix Ivpb - IVPB 100 mls/hr Q6H-IV ESPERANZA Administration Sodium Chloride 1,000 mls @ 125 mls/hr 05/26/17 07:19 05/26/17 09:21 Normal Saline - IV 125 mls/hr ASDIR ESPERANZA Administration Morphine Sulfate 1 mg 05/26/17 07:19 Morphine Injection - IVPUSH Q4H PRN PAIN Mupirocin 1 applic 05/26/17 10:00 Bactroban Ointment (For Decolonization) - NS 05/31/17 09:59 BID ESPERANZA Nicotine 14 mg 05/26/17 10:00 Nicoderm Patch - TD DAILY ESPERANZA Imaging: CT Neck soft tissues (05/25): Enlarged bilateral palatine tonsils (left greater than right) with edema tracking along left pharyngeal wall. Narrowed airways. Approximately [id number] hypodensity noted in the left lateral peritonsillar area which may represent early abscess formation, phlegmon, associated with several smaller hypodensities. ASSESSMENT/PLAN: 57 year old male with past medical history of morbid obesity, chronic smoking, and sleep apnea s/p left lower wisdom tooth + underlying cyst removal Pulmonary: Marked improvement in pulmonary symptoms, no shortness of breath or wheezing WBC trending down, no fever -Reviewed CT neck -Continue Clindamycin 600mg IV and Dexamethasone 8mg IV -start pureed diet -transfer to med-surg pending tolerance of diet -albuterol Q4 PRN FEN: -started pureed diet -patient tolerated diet well Dispo: -Patient is stable and is ready for transfer to med-surg Problem List - Problems (1) Difficulty breathing Code(s): R06.89 - OTHER ABNORMALITIES OF BREATHING Visit type - Emergency Visit Emergency Visit: No - New Patient This patient is new to me today: No - Critical Care Critical Care patient: No
[2017-05-26] MEDS ORDERED: PT OWN MED DRAWER 7, Y5N ONE ×2 (11:42→18:41)
[2017-05-26] MEDS: CLINDAMYCIN 600MG PREMIX IVPB 50 ML IVPB SCH ×2 (14:22→20:07)
[2017-05-26] MEDS ORDERED: ACETAMINOPHEN 325 MG TABLET (FP) PO ONE (16:22)
--- NOTE | 2017-05-26 17:35 | PN ---
Physical Exam: SUBJECTIVE: Patient seen and examined in ICU. He says hes feeling better, he can swallow w/o pain, he tolerated soft diet, no fevers, or difficultly breathing. OBJECTIVE: Vital Signs Period Temp Pulse Resp BP Sys/Martin Pulse Ox Last 24 Hr 97.7 F-98.5 F 70-85 16-20 105-122/68-84 98-98 PE Neuro: alert, awake, cn 2-12intact HEENT: L peritonsilar swelling, small hematoma area negative trismus Pulm: CTAB CV: s1 s2 rrr no mrg Abd: s nt nd + bs Ext: warm, no le edema Skin: tattoos Laboratory Results - last 24 hr 05/26/17 05/26/17 05/26/17 03:35 05:05 05:05 WBC 19.1 H RBC 4.52 Hgb 13.9 Hct 40.4 MCV 89.5 MCHC 34.3 RDW 13.1 Plt Count 265 MPV 8.4 Sodium 140 Potassium 4.8 Chloride 105 Carbon Dioxide 25 Anion Gap 10 BUN 17 Creatinine 1.0 Random Glucose 145 H D Lactic Acid 0.9 Calcium 8.7 Phosphorus 3.9 Magnesium 2.4 Active Medications Generic Name Dose Route Start Last Admin Trade Name Freq PRN Reason Stop Dose Admin Chlorhexidine Gluconate 1 applic 05/26/17 22:00 Hibiclens For Decolonization - TP HS ESPERANZA Dexamethasone Sodium Phosphate 8 mg 05/26/17 18:00 Decadron Injection - IVPUSH Q8H-IV ESPERANZA Clindamycin Phosphate 50 mls @ 100 mls/hr 05/26/17 15:00 05/26/17 14:22 Cleocin 600 Mg Premix Ivpb - IVPB 100 mls/hr Q6H-IV ESPERANZA Administration Sodium Chloride 1,000 mls @ 125 mls/hr 05/26/17 11:58 05/26/17 14:24 Normal Saline - IV 125 mls/hr ASDIR ESPERANZA Administration Morphine Sulfate 1 mg 05/26/17 11:58 Morphine Injection - IVPUSH Q4H PRN PAIN Mupirocin 1 applic 05/26/17 22:00 Bactroban Ointment (For Decolonization) - NS 05/31/17 09:59 BID ESPERANZA Nicotine 14 mg 05/27/17 10:00 Nicoderm Patch - TD DAILY ESPERANZA Imaging: CT of soft tissues of neck-Enlarged lingual tonsils; 16mm hypovascular area in Lt tonsil consistent with phlegmon/forming abscess, unlikely to represent a drainable collection thickening and debri in lt phenoid sinus. Assessment: 46 year old male with history of cigarette smoking, recent left wisdom tooth removal and underlying on 05/23/17, possible sleep apnea, admitted with x1 week sore throat and fever, he presented to the ED d/t difficult breathing, with unsuccessful drainage in ED. Plan: 1. Tonsilar abscess - Clindamycin 600mg q6 - Decadron 8mg q8 - Monitor resp status - Decrease fluids NS 83cc/hr - Soft diet 2. Smoking cessation - Nicotine patch Visit type - Emergency Visit Emergency Visit: Yes ED Registration Date: 05/26/17 Care time: The patient presented to the Emergency Department on the above date and was hospitalized for further evaluation of their emergent condition. - New Patient This patient is new to me today: Yes Date on this admission: 05/26/17 - Critical Care Critical Care patient: No
[2017-05-26] MEDS: SODIUM CHLORIDE 1,000 ML IV SCH (17:45)
[2017-05-26] MEDS: DEXAMETHASONE SOD PHOSPHATE 4 MG/1 ML VIAL IVPUSH SCH (18:52)
[2017-05-26] MEDS ORDERED: CHLORHEXIDINE GLUCONATE 4% CLEANSER FOR DECOLONIZATION TP SCH ×4 (22:00)
--- NOTE | 2017-05-26 22:09 | PN ---
Progress Note, Physician Chief Complaint: f/u History of Present Illness: Asked to see pt by Dr. Chiu. S/p I&D and feels much better. Swallowing and able to drink. No SOB. Has been afebrile in ICU. - Current Medication List Current Medications: Active Medications Dexamethasone Sodium Phosphate (Decadron Injection -) 8 mg IVPUSH Q8H-IV ESPERANZA Last Admin: 05/26/17 18:52 Dose: 8 mg Clindamycin Phosphate (Cleocin 600 Mg Premix Ivpb -) 50 mls @ 100 mls/hr IVPB Q6H-IV ESPERANZA Last Admin: 05/26/17 20:07 Dose: 100 mls/hr Sodium Chloride (Normal Saline -) 1,000 mls @ 83 mls/hr IV ASDIR ESPERANZA Last Admin: 05/26/17 17:45 Dose: 83 mls/hr Morphine Sulfate (Morphine Injection -) 1 mg IVPUSH Q4H PRN PRN Reason: PAIN Nicotine (Nicoderm Patch -) 14 mg TD DAILY [facility] - Objective Vital Signs: Vital Signs Temperature 98 F 05/26/17 22:00 Pulse Rate 69 05/26/17 22:00 Respiratory Rate 18 05/26/17 22:00 Blood Pressure 111/60 05/26/17 22:00 O2 Sat by Pulse Oximetry (%) 96 05/26/17 21:00 Constitutional: Yes: Well Nourished, No Distress, Calm, Other (nml voice. no stridor/stertor. No drooling.) HENT: Yes: Other (no trismus. left nadine molar site with sutures. left soft palate with appropriately echymotic site of I&D attempt. Slight fullness L>R no flutcutance. no uvular deviation.) Labs: CBC, BMP 05/26/17 05:05 05/26/17 05:05 Problem List - Problems (1) Peritonsillar cellulitis Code(s): J36 - PERITONSILLAR ABSCESS Assessment/Plan Left peritonsillar cellulitis s/p negative I&D attempt overnight by dr. chiu. afebrile. - pt feeling better. - clinically no airway concern nor by prior endoscopy - not repeated - agree with ID c/s, ongoing abx with Clinda, taper down steroids. - dr. chiu to re-evaluate tomorrow.
[2017-05-27] MEDS: DEXAMETHASONE SOD PHOSPHATE 4 MG/1 ML VIAL IVPUSH SCH ×3 (02:16→17:31)
[2017-05-27] MEDS: CLINDAMYCIN 600MG PREMIX IVPB 50 ML IVPB SCH ×4 (02:21→20:12)
[2017-05-27 07:10] LABS: BASOPHIL 0.2 % (0-2.0); MCH 30.5 pg (25.7-33.7); MCHC 34.2 g/dl (32.0-35.9); MEAN CELL VOLUME 89.4 fl (80-96); MEAN PLT VOLUME 8.1 fl (7.5-11.1); NEUTROPHILS 89.5 % (42.8-82.8); PLATELET COUNT 276 K/MM3 (134-434); RDW 13.1 % (11.9-15.9); WHITE BLOOD COUNT 20.5 K/mm3 (4.0-10.0)
[2017-05-27 08:29] LABS: ANION GAP 11 (8-16); CALCIUM 8.6 mg/dL (8.5-10.1); CO2 24 mmol/L (21-32); CREATININE 0.8 mg/dL (0.7-1.3); GLUCOSE,RANDOM 137 mg/dL (74-106)
[2017-05-27] MEDS: NICOTINE 14 MG/24 HOURS TOPICAL PATCH TD SCH (09:49)
[2017-05-27] MEDS ORDERED: PT OWN MED DRAWER 7, Y5N ONE ×2 (10:33→17:29)
--- NOTE | 2017-05-27 11:00 | PN ---
Progress Note, Physician Chief Complaint: PULMONARY ALERT,NAD,-SOB,-STRIDOR,-CP - Current Medication List Current Medications: Active Medications Dexamethasone Sodium Phosphate (Decadron Injection -) 8 mg IVPUSH Q8H-IV [facility] Last Admin: 05/27/17 02:16 Dose: 8 mg Clindamycin Phosphate (Cleocin 600 Mg Premix Ivpb -) 50 mls @ 100 mls/hr IVPB Q6H-IV [facility] Last Admin: 05/27/17 09:06 Dose: 100 mls/hr Sodium Chloride (Normal Saline -) 1,000 mls @ 83 mls/hr IV ASDIR [facility] Last Admin: 05/26/17 17:45 Dose: 83 mls/hr Morphine Sulfate (Morphine Injection -) 1 mg IVPUSH Q4H PRN PRN Reason: PAIN Nicotine (Nicoderm Patch -) 14 mg TD DAILY [facility] Last Admin: 05/27/17 09:49 Dose: 14 mg - Objective Vital Signs: Vital Signs Temperature 97.7 F 05/27/17 06:00 Pulse Rate 58 L 05/27/17 06:00 Respiratory Rate 18 05/27/17 06:00 Blood Pressure 105/68 05/27/17 06:00 O2 Sat by Pulse Oximetry (%) 96 05/26/17 21:00 Constitutional: Yes: Well Nourished, Calm Eyes: Yes: WNL HENT: Yes: WNL Neck: Yes: WNL, Other (-STRIDOR) Cardiovascular: Yes: Regular Rate and Rhythm, S1, S2 Respiratory: Yes: CTA Bilaterally Gastrointestinal: Yes: Normal Bowel Sounds, Soft Extremities: Yes: WNL Edema: No Labs: CBC, BMP 05/27/17 06:25 05/27/17 06:25 Assessment/Plan Problem List - Problems (1) Difficulty breathing Code(s): R06.89 - OTHER ABNORMALITIES OF BREATHING (2) Peritonsillar abscess Code(s): J36 - PERITONSILLAR ABSCESS (3) Throat infection Code(s): J02.9 - ACUTE PHARYNGITIS, UNSPECIFIED PLAN CONTINUE ANTIBIOTICS STEROIDS SLEEP STUDIES OUTPATIENT DR ZARAGOZA
--- NOTE | 2017-05-27 16:44 | PN ---
Progress Note (short form) - Note Progress Note: Chief Complaint: f/u left acute pharyngitis , left peritonsillar phelgmon. History of Present Illness: He reports feeling much better. Swallowing and able to drink. No SOB. Patient with without complaints and wondering when he can go home. - Current Medication List Active Medications Dexamethasone Sodium Phosphate (Decadron Injection -) 8 mg IVPUSH Q8H-IV [facility] Last Admin: 05/26/17 18:52 Dose: 8 mg Clindamycin Phosphate (Cleocin 600 Mg Premix Ivpb -) 50 mls @ 100 mls/hr IVPB Q6H-IV [facility] Last Admin: 05/26/17 20:07 Dose: 100 mls/hr Sodium Chloride (Normal Saline -) 1,000 mls @ 83 mls/hr IV ASDIR [facility] Last Admin: 05/26/17 17:45 Dose: 83 mls/hr Morphine Sulfate (Morphine Injection -) 1 mg IVPUSH Q4H PRN PRN Reason: PAIN Nicotine (Nicoderm Patch -) 14 mg TD DAILY [facility] - Objective Afeb VSS Temperature 97.7 F 05/27/17 06:00 Pulse Rate 58 L 05/27/17 06:00 Respiratory Rate 18 05/27/17 06:00 Blood Pressure 105/68 05/27/17 06:00 O2 Sat by Pulse Oximetry (%) 96 05/26/17 21:00 Constitutional: Yes: Well Nourished, No Distress, Calm. nml voice. no stridor/ stertor. No drooling. EOMI ears wnl NC: muclsa wnl Oc/OP: left tonsillar hypertrophy and peritonsillar induration (decreased from prior exam) ecchymosis of soft palate (appropriate from needle I and D) . Uvula midline. no trismus. left nadine molar site with sutures. Cbc and chem7 wbc 20.5 and glc 137 DFl performed as WBC is still elevated. DF: NC- bilateral moderate nasal polyps no mucopus. 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 Op: left tonsillar hypertrophy and peritonsillar induration (decreased from prior exam) ecchymosis of soft palate (appropriate from needle I and D) . Uvula midline. hypophaynx: laterl jarvis wnl. no bulge. epiglottis wnl. arytenoids wnl bilaterally. VFs mobile bilaterally. Airway widely patent Problem List - Problems (1) Peritonsillar cellulitis Code(s): J36 - PERITONSILLAR ABSCESS Assessment/Plan Left peritonsillar cellulitis/acute pharyngitis -s/p negative I&D attempt on admission. Patient has significantly improved. Airway widely patent. DFl performed as WBC is still elevated. He has an elevated blood glucose. Both of these labs elevations may be secondary to steroids. Recommend tapering steroids and switching IV to oral antibiotics and if continues to improve after these changes and WBC and blood glucose levels improve, he is able to be discharged home on an oral steroid taper and oral clinda. He will f/u as an outpatient. Dysphagia- resolved.
--- NOTE | 2017-05-27 17:23 | PN ---
Physical Exam: SUBJECTIVE: Patient seen and examined at the bedside. States he feels well. Denies shortness of breath. Tolerating pureed diet. OBJECTIVE: Will advance diet to soft diet Small L peritonsilar swelling with a small hematoma area Tolerating room air As per pulmonary, sleep study as an outpatient WBC @ 20.5, likely secondary to steriods No difficulty swallowing Vital Signs Period Temp Pulse Resp BP Sys/Martin Pulse Ox Last 24 Hr 97.7 F-98.0 F 58-95 18-20 105-129/60-74 96-98 GENERAL: The patient is awake, alert, and fully oriented, in no acute distress. HEAD: Small L peritonsilar swelling with a small hematoma area EYES: PERRL, extraocular movements intact, sclera anicteric, conjunctiva clear. No ptosis. ENT: Ears normal, nares patent, oropharynx clear without exudates, moist mucous membranes. NECK: Trachea midline, full range of motion, supple. LUNGS: Breath sounds equal, clear to auscultation bilaterally, no wheezes, no crackles, no accessory muscle use. HEART: Regular rate and rhythm, S1, S2 without murmur, rub or gallop. Laboratory Results - last 24 hr 05/27/17 05/27/17 06:25 06:25 WBC 20.5 H RBC 4.76 Hgb 14.6 Hct 42.6 MCV 89.4 MCHC 34.2 RDW 13.1 Plt Count 276 MPV 8.1 Neutrophils % 89.5 H Lymphocytes % 7.6 L D Monocytes % 2.7 L Eosinophils % 0.0 D Basophils % 0.2 Sodium 141 Potassium 4.5 Chloride 106 Carbon Dioxide 24 Anion Gap 11 BUN 16 Creatinine 0.8 Random Glucose 137 H Calcium 8.6 Active Medications Generic Name Dose Route Start Last Admin Trade Name Freq PRN Reason Stop Dose Admin Dexamethasone Sodium Phosphate 8 mg 05/26/17 18:00 05/27/17 11:50 Decadron Injection - IVPUSH 8 mg Q8H-IV [facility] Administration Clindamycin Phosphate 50 mls @ 100 mls/hr 05/26/17 15:00 05/27/17 14:56 Cleocin 600 Mg Premix Ivpb - IVPB 100 mls/hr Q6H-IV [facility] Administration Sodium Chloride 1,000 mls @ 83 mls/hr 05/26/17 17:42 05/26/17 17:45 Normal Saline - IV 83 mls/hr ASDIR [facility] Administration Morphine Sulfate 1 mg 05/26/17 11:58 Morphine Injection - IVPUSH Q4H PRN PAIN Nicotine 14 mg 05/27/17 10:00 05/27/17 09:49 Nicoderm Patch - TD 14 mg DAILY [facility] Administration ASSESSMENT/PLAN: Patient is a 46 year old male with a significant pats medical history of cigarette smoking and recent left wisdom tooth removal on 05/23/17. He presented to the ED on 05/26/2017 with complainants of 1 week of fever, Tmax 102F , difficulty swallowing and difficulty breathing. He saw his dentist 2 days prior to admission who reportedly removed a left lower wisdom tooth and underlying cyst. He was prescribed 150 mg of Clindamycin TID and completed 2 days of a 7 day course. He denies any headache, blurry vision, facial pain.no history of sick contact, recent cold or recent travel. ID: Left Small peritonsilar swelling with a small hematoma area - improved Assessment/Plan: Patient is tolerating room air, no difficulty swallowing On Clindamycin 600mg q6 On Decadrol 8mg q8 Respiratory status stable dysphagia resolved, diet advanced to soft diet WBC 20, likely due to steriod use Monitor vitals Pulmonary: Difficulty breathing - resolved Assessment/Plan: Sleep study as an outpatient to rule out sleep apnea Pulmonary following F.E.N. Fluids: tolerating PO Electrolytes: monitor Nutrition: soft Prophylaxis: GI: protonix while on steroids DVT: ambulatory Disposition: Requires inpatient hospitalization. Full Code. Visit type - Emergency Visit Emergency Visit: Yes ED Registration Date: 05/26/17 Care time: The patient presented to the Emergency Department on the above date and was hospitalized for further evaluation of their emergent condition. - New Patient This patient is new to me today: Yes Date on this admission: 05/27/17 - Critical Care Critical Care patient: No - Discharge Referral Referred to [facility] No
[2017-05-27] MEDS: SODIUM CHLORIDE 1,000 ML IV SCH (17:31)
[2017-05-27] MEDS: PANTOPRAZOLE 40 MG TABLET (FP) PO SCH (18:03)
[2017-05-28] MEDS: DEXAMETHASONE SOD PHOSPHATE 4 MG/1 ML VIAL IVPUSH SCH ×2 (01:27→10:00)
[2017-05-28] MEDS: CLINDAMYCIN 600MG PREMIX IVPB 50 ML IVPB SCH ×2 (02:17→08:37)
[2017-05-28 06:46] LABS: MCH 30.1 pg (25.7-33.7); MCHC 33.6 g/dl (32.0-35.9); MEAN CELL VOLUME 89.7 fl (80-96); PLATELET COUNT 305 K/MM3 (134-434); WHITE BLOOD COUNT 21.1 K/mm3 (4.0-10.0)
[2017-05-28 07:09] LABS: ALBUMIN 3.3 g/dl (3.4-5.0); ANION GAP 9 (8-16); CALCIUM 8.4 mg/dL (8.5-10.1); CO2 25 mmol/L (21-32); CREATININE 0.9 mg/dL (0.7-1.3); GLUCOSE,RANDOM 145 mg/dL (74-106); SGOT/AST 12 U/L (15-37); SGPT/ALT 34 U/L (12-78)
[2017-05-28 07:10] LABS: ALK PHOS 79 U/L (45-117); BILIRUBIN,TOTAL 0.3 mg/dL (0.2-1.0); TOT PROT 6.8 g/dl (6.4-8.2)
[2017-05-28] MEDS: SODIUM CHLORIDE 1,000 ML IV SCH (08:20)
[2017-05-28] MEDS ORDERED: PT OWN MED DRAWER 7, Y5N ONE (09:37)
[2017-05-28] MEDS: NICOTINE 14 MG/24 HOURS TOPICAL PATCH TD SCH (09:43)
[2017-05-28] MEDS: PANTOPRAZOLE 40 MG TABLET (FP) PO SCH (09:44)
--- NOTE | 2017-05-28 10:58 | PN ---
Progress Note, Physician History of Present Illness: pulmonary alert,nad,-sob,-stridor,tolerating po - Current Medication List Current Medications: Active Medications Dexamethasone Sodium Phosphate (Decadron Injection -) 8 mg IVPUSH Q8H-IV [facility] Last Admin: 05/28/17 10:00 Dose: 8 mg Clindamycin Phosphate (Cleocin 600 Mg Premix Ivpb -) 50 mls @ 100 mls/hr IVPB Q6H-IV [facility] Last Admin: 05/28/17 08:37 Dose: 100 mls/hr Sodium Chloride (Normal Saline -) 1,000 mls @ 83 mls/hr IV ASDIR [facility] Last Admin: 05/28/17 08:20 Dose: 83 mls/hr Morphine Sulfate (Morphine Injection -) 1 mg IVPUSH Q4H PRN PRN Reason: PAIN Nicotine (Nicoderm Patch -) 14 mg TD DAILY [facility] Last Admin: 05/28/17 09:43 Dose: 14 mg Pantoprazole Sodium (Protonix -) 40 mg PO DAILY [facility] Last Admin: 05/28/17 09:44 Dose: 40 mg - Objective Vital Signs: Vital Signs Temperature 98.2 F 05/28/17 06:00 Pulse Rate 68 05/28/17 06:00 Respiratory Rate 16 05/28/17 06:00 Blood Pressure 132/87 05/28/17 06:00 O2 Sat by Pulse Oximetry (%) 99 05/27/17 22:00 Constitutional: Yes: Well Nourished, Calm Eyes: Yes: WNL HENT: Yes: WNL Neck: Yes: WNL Cardiovascular: Yes: WNL Respiratory: Yes: CTA Bilaterally Gastrointestinal: Yes: Normal Bowel Sounds, Soft Extremities: Yes: WNL Edema: No Labs: CBC, BMP 05/28/17 06:20 05/28/17 06:20 Assessment/Plan Problem List - Problems (1) Difficulty breathing Code(s): R06.89 - OTHER ABNORMALITIES OF BREATHING (2) Peritonsillar abscess Code(s): J36 - PERITONSILLAR ABSCESS (3) Throat infection Code(s): J02.9 - ACUTE PHARYNGITIS, UNSPECIFIED PLAN PO ANTIBIOTICS STEROID TAPER OK TO DISCHARGE SLEEP STUDIES OUTPATIENT DR ZARAGOZA
[2017-05-28 11:26] LABS: METAMYELOCYTE 1 % (0-2)
[2017-05-28 11:27] LABS: PLATELET ESTIMATE ADEQUATE (NORMAL)
--- NOTE | 2017-05-28 11:44 | DS ---
Physical Exam: SUBJECTIVE: Patient seen and examined. Denies pain, denies shortness of breath. OBJECTIVE: Will tolerating diet, no difficulty swallowing, tolerating room air Tolerating room air As per pulmonary, sleep study as an outpatient WBC @ 21 likely secondary to steriods Discharge home with prednisone taper Vital Signs Period Temp Pulse Resp BP Sys/Martin Pulse Ox Last 24 Hr 97.8 F-98.4 F 68-95 16-20 115-132/68-87 99 PHYSICAL EXAM GENERAL: The patient is awake, alert, and fully oriented, in no acute distress. HEAD: Small L peritonsilar swelling with a small hematoma area EYES: PERRL, extraocular movements intact, sclera anicteric, conjunctiva clear. No ptosis. ENT: Ears normal, nares patent, oropharynx clear without exudates, moist mucous membranes. NECK: Trachea midline, full range of motion, supple. LUNGS: Breath sounds equal, clear to auscultation bilaterally, no wheezes, no crackles, no accessory muscle use. HEART: Regular rate and rhythm, S1, S2 without murmur, rub or gallop. LABS Laboratory Results - last 24 hr 05/28/17 05/28/17 06:20 06:20 WBC 21.1 H RBC 4.78 Hgb 14.4 Hct 42.9 MCV 89.7 MCHC 33.6 RDW 13.0 Plt Count 305 MPV 8.0 Neutrophils % 81.0 Lymphocytes % 14.0 D Monocytes % 3.0 L Metamyelocytes 1 Myelocytes 1 Differential Comment Manual diff done Platelet Estimate Adequate Sodium 140 Potassium 4.3 Chloride 106 Carbon Dioxide 25 Anion Gap 9 BUN 21 H D Creatinine 0.9 Creat Clearance w eGFR > 60 Random Glucose 145 H Calcium 8.4 L Total Bilirubin 0.3 D AST 12 L ALT 34 Alkaline Phosphatase 79 Total Protein 6.8 Albumin 3.3 L HOSPITAL COURSE: Date of Admission:05/26/17 Date of Discharge: 05/28/17 ASSESSMENT/PLAN: Patient is a 46 year old male with a significant pats medical history of cigarette smoking and recent left wisdom tooth removal on 05/23/17. He presented to the ED on 05/26/2017 with complainants of 1 week of fever, Tmax 102F , difficulty swallowing and difficulty breathing. He saw his dentist 2 days prior to admission who reportedly removed a left lower wisdom tooth and underlying cyst. He was prescribed 150 mg of Clindamycin TID and completed 2 days of a 7 day course. He denies any headache, blurry vision, facial pain.no history of sick contact, recent cold or recent travel. ID: Left Small peritonsilar swelling with a small hematoma area - improved Assessment/Plan: Patient is tolerating room air, no difficulty swallowing Discharge today with continuation of Clindamycin PO and prednisone 6 day taper Respiratory status stable dysphagia resolved, tolerating soft diet WBC 21, likely due to steriod use New PCP referred as per patient's request Pulmonary: Difficulty breathing - resolved Assessment/Plan: Sleep study as an outpatient to rule out sleep apnea Pulmonary to follow outpatient Disposition: Full Code. Minutes to complete discharge: 60 Discharge Summary Reason For Visit: PERITONSILLAR ABSCESS THROAT INFECTION Current Active Problems Difficulty breathing (Acute) Peritonsillar abscess (Acute) Peritonsillar cellulitis (Acute) Throat infection (Acute) Condition: Stable - Instructions Diet, Activity, Other Instructions: Mr. Adams: Take prednisone Taper as follows: Prednisone 50mg on 05/29/2017 Prednisone 40mg on 05/30/2017 Prednisone 30mg on 05/31/2017 Prednisone 20mg on 06/01/2017 Prednisone 10mg on 06/02/2017 Prednisone 10mg on 06/03/2017 Then stop taking prednisone Take Clindamycin 300mg every 8 hours for 5 more days please follow up with new PCP Dr. Naranjo. Please follow up with Dr. Massey as an outpatient. Please return to the ER with new, persistent or worsening symptoms. Thank you Azra Rushing [employer] [phone] Referrals: Jerardo Blanchard MD [Staff Physician] - (Bariatric eval ) Patrick Massey MD [Staff Physician] - Kofi Naranjo MD [Staff Physician] - Lev Chiu MD [Staff Physician] - Disposition: HOME - Home Medications Comprehensive Discharge Medication List: Ambulatory Orders Clindamycin [Cleocin -] 150 mg PO Q6H 05/25/17 Ibuprofen [Motrin -] 600 mg PO TID PRN 05/25/17 Naproxen [Naprosyn -] 500 mg PO BID PRN 05/25/17 This patient is new to me today: No Emergency Visit: Yes ED Registration Date: 05/26/17 Care time: The patient presented to the Emergency Department on the above date and was hospitalized for further evaluation of their emergent condition. Critical Care patient: No - Discharge Referral Referred to [facility] No
[2017-05-28 12:11] VITALS: BP 129/76; TEMP 98.1
[2017-05-28 12:13] VITALS: PULSE 96
== END 2017-05-28 12:41 | disposition home or self-care (01) | DRG 872 ==
LOC: JER 19:30 → JERBED 05-26 00:57 → JICU 05-26 04:13 → J5S 05-26 16:41
PROVIDERS: ADMIT Internal Medicine; ATTEND Nurse Practitioner Family
DX: A41.9 Sepsis, unspecified organism (principal); J36 Peritonsillar abscess; Z68.41 Body mass index [BMI] 40.0-44.9, adult; F17.210 Nicotine dependence, cigarettes, uncomplicated; E66.01 Morbid (severe) obesity due to excess calories
CPT/HCPCS: 36415; 70491-TC; 71010-TC; 80048; 80053; 83605; 83735; 84100; 84443; 85025; 85027; 87040; 87070; 87430; 93005; 93010; 94761; 99282-25